=== PATIENT | female | born 1955 | race Caucasian/White ===

== ENCOUNTER 2018-08-10 07:12 | Emergency (ER) | payer OTHER ==
[2018-08-10 07:39] VITALS: BP 124/67
[2018-08-10] MEDS ORDERED: DEXAMETHASONE SOD PHOS INJ 10 MG/1 ML VIAL IM ONE (07:49)
--- NOTE | 2018-08-10 07:54 | ER Document Report ---
ED General - General Chief Complaint: Back Pain Stated Complaint: PAIN ALL OVER Time Seen by Provider: 08/10/18 07:42 Primary Care Provider: TEE JACOBSON [Primary Care Provider] - Follow up as needed Notes: 63-year-old female with history of chronic pain and multiple sclerosis presents with low back pain and spasms that radiate down the legs more so the left than the right. The patient stated she is cared for by the [facility]. She is under pain management and usually has to take urine test to be compliant with the pain management program. The patient stated she has been having this pain for quite a while but over the last several days has been more intense than usual. Patient complains of lower back pain and spasm. She complains of pain that runs down the back of her leg on the left-hand side. She denies any numbness or tingling denies any bowel or bladder issues denies any numbness in her groin. She denies any falls or trauma. Rates the pain is severe. She has been taking her baclofen and Excedrin at home. TRAVEL OUTSIDE OF THE [place] IN LAST 30 DAYS: No - Related Data Allergies/Adverse Reactions: No Known Allergies Allergy (Unverified 08/10/18 07:22) Past Medical History - Social History Smoking Status: Unknown if Ever Smoked Family History: Other Review of Systems - Review of Systems Constitutional: denies: Chills, Fever Cardiovascular: denies: Chest pain, Dyspnea Respiratory: denies: Short of breath Gastrointestinal: denies: Abdominal pain, Nausea, Vomiting Musculoskeletal: Back pain, Joint pain, Muscle pain -: Yes All other systems reviewed and negative Physical Exam - Vital signs Vitals: Temp Pulse Resp BP Pulse Ox 97.6 F 74 18 124/67 100 08/10/18 07:37 08/10/18 07:37 08/10/18 07:37 08/10/18 07:37 08/10/18 07:37 - Notes Notes: GENERAL_APPEARANCE: well_nourished, alert, cooperative VITALS: reviewed, see vital signs table. HEAD: no_swelling\tenderness on the head. EYES: PERRL, EOMI, conjunctiva_clear. NOSE: no_nasal_discharge. MOUTH: (-)decreased moisture. THROAT: no_tonsilar_inflammation, no_airway_obstruction. no_lymphadenopathy NECK: supple, no_neck_tenderness, (-)thyromegaly. BACK: L3-4-5 into the left SI joint tenderness no obvious redness heat or abnormalities CHEST_WALL: no_chest_tenderness. LUNGS: no_wheezing, no_rales, no_rhonchi, (-)accessory muscle use, good air exchange bilateral. HEART: normal_rate, normal_rhythm, normal_S1, normal_S2, (-)S3, (-)S4, no_murmur, no_rub. ABDOMEN: normal_BS, soft, no_abd_tenderness, (-)guarding, (-)rebound, no_or ganomegaly, no_abd_masses. EXTREMITIES:good pulses in all_extremities, patient complains of bilateral quadricep pain. No redness or heat are noted, no_edema. SKIN: warm, dry, good_color, no_rash. MENTAL_STATUS: speech_clear, oriented_X_3, anxious_affect, responds_appropriately to questions. NEURO: Neg Motor or Sensory Deficits on exam, CN 2-12 intact, DTR 2+ symmetric x 4, No cerbellar signs Course - Re-evaluation Re-evalutation: 08/10/18 07:52 The patient presents to the ER with a an exacerbation of her chronic pain. Patient and her son are present. They stated that she can have any narcotic pain medicine. She is under pain management contract. She has to take regular urine test to be sure she has not violated her pain management contract. The patient has a history of multiple sclerosis appears to be no neuro deficit chief complaint of a lot of pain in her back running down her legs almost sciatica type on the left. She has strong dorsalis pedis pulses bilateral brisk cap refill no numbness no tingling no calf pain or tenderness. The patient will be given an IM dose of Decadron here and a Medrol Dosepak for home she already has baclofen. Again I encouraged her to engage her pain management physicians. The patient stated that she cannot have any narcotic pain medicines because of the testing. Will prescribe her an NSAID and a Medrol Dosepak. - Vital Signs Vital signs: Temp Pulse Resp BP Pulse Ox 97.6 F 74 18 124/67 100 08/10/18 07:37 08/10/18 07:37 08/10/18 07:37 08/10/18 07:37 08/10/18 07:37 Discharge - Discharge Clinical Impression: Muscle spasm Chronic pain Qualifiers: Chronic pain type: chronic pain syndrome Qualified Code(s): G89.4 - Chronic pain syndrome Condition: Good Disposition: HOME, SELF-CARE Instructions: Low Back Pain ([facility]) Additional Instructions: [facility] Prescriptions: Diclofenac Sodium [Voltaren] 75 mg PO BID PRN #20 tablet. PRN Reason: Pain Scale Of 5 Methylprednisolone [Medrol Dosepack (4 mg/Tab) 21 Tab/Dosepak] 21 tab PO ASDIR #1 dspk Referrals: LOCALMD,NO [Primary Care Provider] - Follow up as needed
== END 2018-08-10 08:07 | disposition home or self-care (01) ==
LOC: ER 07:12
DX: G89.4 Chronic pain syndrome (principal); M62.830 Muscle spasm of back; M54.5 Low back pain; M25.50 Pain in unspecified joint; Z79.899 Other long term (current) drug therapy; G35 Multiple sclerosis
CPT/HCPCS: 99283; 96372; J1100

== ENCOUNTER 2019-04-15 22:59 | Emergency (ER) | payer OTHER ==
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
[2019-04-16] MEDS ORDERED: ONDANSETRON 4 MG TAB.RAPDIS PO ONE (00:25)
--- NOTE | 2019-04-16 01:40 | ER Document Report ---
ED General - General Chief Complaint: Nausea/Vomiting/Diarrhea Stated Complaint: VOMITING/SHAKING/STOOL ISSUE Time Seen by Provider: 04/16/19 00:15 Primary Care Provider: SUAD,BONNY [Primary Care Provider] - Follow up as needed Mode of Arrival: Wheelchair TRAVEL OUTSIDE OF THE [place] IN LAST 30 DAYS: No - Related Data Allergies/Adverse Reactions: No Known Allergies Allergy (Unverified 08/10/18 07:22) Home Medications: DHT Daya. Amlodipine. Baclofen. Excedrin PM Past Medical History - General Information source: Patient - Social History Smoking Status: Current Every Day Smoker Chew tobacco use (# tins/day): No Frequency of alcohol use: Occasional Drug Abuse: None Family History: None, Other Patient has suicidal ideation: No Patient has homicidal ideation: No Renal/ Medical History: Denies: Hx Peritoneal Dialysis Physical Exam - Vital signs Vitals: Temp Pulse Resp Pulse Ox 98.5 F 87 18 100 04/15/19 23:05 04/15/19 23:05 04/15/19 23:05 04/15/19 23:05 - Notes Notes: Patient presents emergency department multiple complaints. First complaint that she has had nausea and vomiting going on for the past day. Multiple episodes. Says she was only able to tolerate a few sips of water. She said initially was very dark coffee grounds but it cleared up after this episode. Not noticed any blood. The diarrhea was watery black. There is no blood she denies any recent antibiotics. She has been having some crampy abdominal pain associated with this fevers chest pain shortness of breath or urinary symptoms. She denies any previous history of peptic ulcer disease. Denies aspirin Advil Motrin or abuse and is not taking any aspirin now. However she does report that she drinks several beers a night no previous history of alcohol-related GI disease Patient also reports that she is been feeling anxious for the last couple days and not able to sleep. Take her baclofen last night and was able to sleep the patient is extremely vague about her symptoms. Past medical history includes hypertension multiple sclerosis and low back pain. Medications been reviewed she is no longer on oxycodone or hydrocodone Review of systems all systems reviewed were acutely negative except as in HPI PHYSICAL EXAMINATION: Vital signs noted triage note GENERAL: Well-appearing, well-nourished and in no acute distress. HEAD: Atraumatic, normocephalic. EYES: Pupils equal round and reactive to light, extraocular movements intact, sclera anicteric, conjunctiva are normal. ENT: nares patent, oropharynx clear without exudates. Moist mucous membranes. NECK: Normal range of motion, supple without lymphadenopathy LUNGS: Breath sounds clear to auscultation bilaterally and equal. No wheezes rales or rhonchi. HEART: Regular rate and rhythm without murmurs ABDOMEN: Soft, nontender, normoactive bowel sounds. No guarding, no rebound. No masses appreciated. There is no epigastric or right upper quadrant tenderness even to deep palpation EXTREMITIES: Normal range of motion, no pitting or edema. No cyanosis. NEUROLOGICAL: No focal neurological deficits. Moves all extremities spontan eously and on command. PSYCH: Normal mood, normal affect. SKIN: Warm, Dry, normal turgor, no rashes or lesions noted. Differential diagnosis ulcer gastritis pancreatitis GI bleed Course - Re-evaluation Re-evalutation: 04/16/19 05:50 ED patient has remained stable she was given IV fluids and antiemetics. I advised the patient will need a stool sample and she indicated she felt like to give us one. However she has not had additional episodes of diarrhea while here in the department. She did not advise nursing says she wanted to go. I went and saw to the patient and family. Advised her that with the vomiting dark mate rial and dark stools I was concerned about internal bleeding or gas peptic ulcer I did norma advised her that we can do a rectal exam at this time and check a stool quickly the results which would dramatically change her course of treatment. I initially ordered a Hemoccult was not aware that nursing staff could not perform this patient and family indicate they want to go home and follow-up with your family doctor. I emphasized the importance of following up in the next day or 2 for the opportunity to return at any time and strongly emphasized the need to return if she continues to vomit dark material or has dark stools. She was given a prescription for Zofran and antibiotics for UTI - Vital Signs Vital signs: Temp Pulse Resp BP Pulse Ox 98.0 F 78 17 122/67 99 04/16/19 04:00 04/16/19 04:00 04/16/19 04:00 04/16/19 04:00 04/16/19 04:00 - Laboratory Result Diagrams: 04/16/19 02:15 04/16/19 02:15 Laboratory results interpreted by me: 04/16/19 04/16/19 04/16/19 01:57 02:15 02:15 MCV 100 H MCH 34.1 H RDW 14.6 H Sodium 135.6 L Urine Blood SMALL H Leukocyte Esterase Rfl LARGE H Urine was noted Discharge - Discharge Clinical Impression: Vomiting and diarrhea Abdominal pain Qualifiers: Abdominal location: generalized Qualified Code(s): R10.84 - Generalized abdominal pain Disposition: HOME, SELF-CARE Instructions: Abdominal Pain ([facility]), Diarrhea, Nonspecific ([facility]) Additional Instructions: Stay on clear liquids for 8 hours then a bland diet avoid fatty greasy foods Please review the discharge instructions Return to the ED if you get worse or want further evaluation or if you start t hrowing up blood or your vomitus looks like coffee grounds or you stools continue to be black like tar We are concerned that YOU may be bleeding internally. Is very important to follow-up with your doctor tomorrow Your blood pressure was elevated today need to be rechecked again in 1 week to determine if you need to be on medication high blood pressure can cause heart attack and stroke Prescriptions: Ondansetron [Zofran Odt 4 mg Tablet] 1 - 2 tab PO Q4HP PRN #12 tab.rapdis PRN Reason: Esomeprazole Magnesium [Nexium] 20 mg PO DAILY #14 capsule.dr Forms: Elevated Blood Pressure [facility] [Primary [facility] Provider] - Follow up as needed
[2019-04-16] MEDS ORDERED: NORMAL SALINE 500 ML IV ONE (01:41)
[2019-04-16] MEDS ORDERED: NORMAL SALINE 1000 ML 1,000 ML IV ONE (01:43)
[2019-04-16 02:27] LABS: ABSOLUTE BASOPHILS # (AUTO) 0.1 10^3/uL (0.0-0.2); ABSOLUTE LYMPHOCYTES (AUTO) 2.3 10^3/uL (0.5-4.7); ABSOLUTE MONOCYTES (AUTO) 0.5 10^3/uL (0.1-1.4); ABSOLUTE NEUT (AUTO) 3.8 10^3/uL (1.7-8.2); BASOPHILS % (AUTO) 0.9 % (0-2); EOSINOPHILS % (AUTO) 0.6 % (0-6); HEMATOCRIT 40.9 % (36.0-47.0); LYMPHOCYTES % (AUTO) 34.2 % (13-45); MEAN CORPUSCULAR HEMOGLOBIN 34.1 pg (27.0-33.4); MEAN CORPUSCULAR HGB CONC 34.2 g/dL (32.0-36.0); MEAN CORPUSCULAR VOLUME 100 fl (80-97); MONOCYTES % (AUTO) 7.8 % (3-13); PLATELET COUNT 156 10^3/uL (150-450); RED CELL DISTRIBUTION WIDTH 14.6 % (11.5-14.0); SEGMENTED NEUTROPHILS % (AUTO) 56.5 % (42-78); TOTAL CELLS COUNTED % (AUTO) 100 %; WHITE BLOOD COUNT 6.7 10^3/uL (4.0-10.5)
[2019-04-16 02:42] LABS: ALBUMIN 4.1 g/dL (3.5-5.0); ALKALINE PHOSPHATASE 101 U/L (38-126); ANION GAP 11 (5-19); ASPARTATE AMINO TRANSFERASE 25 U/L (14-36); BILIRUBIN,DIRECT 0.2 mg/dL (0.0-0.4); BILIRUBIN,TOTAL 0.7 mg/dL (0.2-1.3); BLOOD UREA NITROGEN 14 mg/dL (7-20); CALCIUM 9.8 mg/dL (8.4-10.2); CARBON DIOXIDE 24 mmol/L (22-30); CHLORIDE 101 mmol/L (98-107); GLUCOSE 96 mg/dL (75-110); POTASSIUM 3.6 mmol/L (3.6-5.0); TOTAL PROTEIN 7.4 g/dL (6.3-8.2)
[2019-04-16 02:46] LABS: APPEARANCE,URINE CLOUDY; BILIRUBIN,URINE NEGATIVE (NEGATIVE); COLOR,URINE YELLOW; GLUCOSE, URINE NEGATIVE (NEGATIVE); KETONES,URINE NEGATIVE (NEGATIVE); PROTEIN,URINE NEGATIVE (NEGATIVE); URINE SPECIFIC GRAVITY 1.013; UROBILINOGEN,URINE NEGATIVE mg/dL (<2.0)
[2019-04-16 05:49] VITALS: BP 122/67
== END 2019-04-16 04:00 | disposition home or self-care (01) ==
LOC: ER 22:59
DX: R11.2 Nausea with vomiting, unspecified (principal); R19.7 Diarrhea, unspecified; R10.84 Generalized abdominal pain; R50.9 Fever, unspecified; R07.9 Chest pain, unspecified; R06.02 Shortness of breath; F17.200 Nicotine dependence, unspecified, uncomplicated; I10 Essential (primary) hypertension; G35 Multiple sclerosis
CPT/HCPCS: 99284; 96360; 96361; 36415; 87086; 83690; 85025; 87088; 80053; 81001; 87186; S0119; J7030; J7040